=== PATIENT | female | born 1955 | race Caucasian/White ===

== ENCOUNTER 2023-09-09 14:49 | Outpatient (CLI) | payer MEDICARE, OTHER | END 2023-09-09 14:50 | disposition home or self-care (01) | LOC: CSHRAD 14:49 | PROVIDERS: ATTEND Neurological Surgery | DX: M25.512 Pain in left shoulder (principal); M19.012 Primary osteoarthritis, left shoulder ==

== ENCOUNTER 2023-11-15 10:41 | Outpatient (CLI) | payer MEDICARE, OTHER | END 2023-11-15 10:42 | disposition home or self-care (01) | LOC: CSHRAD 10:41 | PROVIDERS: ATTEND Neurological Surgery | DX: M51.36 Other intervertebral disc degeneration, lumbar region (principal); Z98.890 Other specified postprocedural states | CPT/HCPCS: 72100 ==

== ENCOUNTER 2023-12-28 13:26 | Outpatient (CLI) | payer MEDICARE, OTHER | END 2023-12-28 13:27 | disposition home or self-care (01) | LOC: CSHRAD 13:26 | PROVIDERS: ATTEND Neurological Surgery | DX: M51.36 Other intervertebral disc degeneration, lumbar region (principal); Z98.890 Other specified postprocedural states; M47.816 Spondylosis without myelopathy or radiculopathy, lumbar region | CPT/HCPCS: 72100 ==

== ENCOUNTER 2024-05-24 10:08 | Outpatient (CLI) | payer MEDICARE | END 2024-05-24 10:09 | disposition home or self-care (01) | LOC: CSHRAD 10:08 | PROVIDERS: ATTEND Neurological Surgery | DX: M51.36 Other intervertebral disc degeneration, lumbar region (principal); Z98.890 Other specified postprocedural states | CPT/HCPCS: 72100 ==